=== PATIENT | male | born 1970 | race Caucasian/White ===

== ENCOUNTER → 2017-11-29 | Outpatient (REF) ==
[~2017-11-29] MED LIST: ASPIRIN EC81 MG PO; METOPROL TAR50 MG PO; PRILOSEC40 MG PO; ZYLOPRIM300 MG PO
== END | disposition home or self-care (01) | DRG 642 ==
LOC: LAB 07:52
PROVIDERS: ATTEND Nurse Practitioner Adult Health
DX: E78.4 Other hyperlipidemia (principal); I10 Essential (primary) hypertension

== ENCOUNTER 2020-10-11 08:29 | Inpatient (IN) | payer BC ==
[2020-10-11] VITALS (13 sets, daily range): BP systolic 106–144; BP diastolic 65–78
[~2020-10-11] VITALS: Ht 185.4 cm; Wt 113.6 kg
[~2020-10-11 08:29] MED LIST changes: +METOPROL TAR100 MG PO; -METOPROL TAR50 MG PO
--- NOTE | 2020-10-11 08:33 | NUR ---
PT WHEELED TO ROOM # 15 FOR BEDSIDE TRIAGE.
[2020-10-11 09:00] LABS: GFR 59 ML/MIN (>=60 (CALC)); GFR FOR AFR.AMER. > 60 ML/MIN (>=60 (CALC))
--- NOTE | 2020-10-11 09:30 | NUR ---
RESP EASY, CALL NAGY IN REACH POC DISCUSSED.
[2020-10-11 09:59] LABS: HEMATOCRIT 47.2 % (39.0-50.0); HEMOGLOBIN 15.5 g/dl (14.0-18.0); IMMATURE GRANULOCYTES 0.2 % (0.0-5.0); MEAN CELL VOLUME 88.4 fL CALC (80.0-100.0); MEAN CORPUSCULAR HGB CONC 32.8 g/dL CAL (32.0-36.0); NEUT# 8.11 thou/uL (1.82-7.42); RED BLOOD COUNT 5.34 mill/uL (4.70-6.10); RED CELL DISTRI WIDTH 14.5 % (11.5-15.5)
[2020-10-11 10:16] LABS: D-DIMER 0.52 mg/L (0.19-0.60); INTERNATIONAL NORMALIZED RATIO 1.1 RATIO (0.7-1.3); PROTHROMBIN TIME 11.2 SECONDS (9.0-12.5)
[2020-10-11 10:19] LABS: ALBUMIN 3.8 g/dL (3.2-5.0); ALKALINE PHOSPHATASE 80 u/l (38-126); BILIRUBIN, TOTAL 0.7 mg/dL (0.0-1.4); BUN 16 mg/dL (9-20); BUN/CREATININE RATIO 12 (12-20 (CALC)); CARBON DIOXIDE 28 mmol/l (22-30); CHLORIDE 93 mmol/l (95-108); CREATININE 1.3 mg/dL (0.7-1.3); GFR 59 ML/MIN (>=60 (CALC)); GFR FOR AFR.AMER. > 60 ML/MIN (>=60 (CALC)); SODIUM 131 mmol/l (137-146); TOTAL PROTEIN 7.7 g/dL (6.3-8.2)
[2020-10-11 10:21] LABS: ANION GAP 14 (6-22 (CALC)); POTASSIUM 3.9 mmol/l (3.5-5.1); SGOT/AST 80 u/l (17-59)
[2020-10-11 10:30] LABS: MYOGLOBIN 357 ng/mL (0 - 121)
[2020-10-11 10:35] LABS: C-REACTIVE PROTEIN 24.8 mg/dL (0-0.9)
[2020-10-11] MEDS ORDERED: LOSARTAN POTASS50 MG PO (11:19)
--- NOTE | 2020-10-11 11:29 | NUR ---
IV ABX INFUSING, MAINTENANCE FLUIDS RUNNING. PATIENT DENIES NEEDS AT THIS TIME, CONTINUING TO MONITOR.
--- NOTE | 2020-10-11 11:30 | NUR ---
PATIENT RESTING, NO DISTRESS, O2 SATS 89-92%, RT MADE AWARE.
--- NOTE | 2020-10-11 11:39 | NUR ---
RT AT BEDSIDE, O2 UP TO 7 LITERS ON HIGH FLOW MASK.
--- NOTE | 2020-10-11 11:39 | NUR ---
O2 SATURATION 85% ON 4L NC. PLACED ON HFNC AT 7L.
--- NOTE | 2020-10-11 12:47 | NUR ---
ATTEMPT TO CALL REPORT, IKER AT LUNCH.
--- NOTE | 2020-10-11 12:55 | NUR ---
REPORT CALLED TO ANJELICA DONG
--- NOTE | 2020-10-11 13:10 | NUR ---
Admission Note Report Given to: Transported by: Wheelchair X Stretcher Transported with: X Nurse Transporter X Patent IV X O2 X Piece Worker Location: X ICU [facility]
--- NOTE | 2020-10-11 15:24 | NUR ---
PT ARRIVES TO ICU-6 VIA STRETCHER FROM ER ACCOMPANIED BY ALEXANDRA DEJESUS. PT IS ALERT AND ORIENTED X 3. LUNGS CLEAR, PT ON 7 LPM NC. PT DOES APPEAR SHORT OF BREATH WITH EXERTION, STATES THAT HE HAS FELT POORLY FOR OVER ONE WEEK. PT ABLE TO ANSWER QUESTIONS APPROPRIATELY. NO ACUTE DISTRESS, BUT PT DOES BEAR MONITORING.
--- NOTE | 2020-10-11 17:10 | NUR ---
PT WITH SATS AROUND 90%, NO COMPLAINT OF SHORTNESS OF BREATH OR OTHERWISE.
--- NOTE | 2020-10-11 20:15 | NUR ---
PATIENT IS ALERT AND ORIENTED X4. ON HIGH FLOW NC, WAS AT 10 L/MIN, TITRATED NOW TO 12 L/MIN, SPO2 88%-90%, SPO2 WAS AT 86%, PATIENT DENIES ANY SOB AT THIS TIME, NO RESPIRATORY DISTRESS NOTED. BP WNL, SR ON TELEMETRY, HR 80'S. NURSE ASSESSMENT PERFORMED, SKIN INTACT. NO EDEMA NOTED. IV X1 INTACT, NS INFUSING PROPERLY. USES URINAL, URINE JIM/CLEAR. POC DISCUSSED, EDUCATED ON IMPORTANCE OF LAYING PRONE, PO HYDRATION AND NUTRITION, STEPS FOLLOWING TITRATION OF O2 SUPPORT.AFEBRILE, SELF REPOSITIONS. NO COMPLAINTS OR NEEDS AT THIS TIME. CALL LIGHT WITHIN REACH.
--- NOTE | 2020-10-11 22:00 | NUR ---
PATIENT TOLERATES LOVENOX INJECTION. ICE WATER PROVIDED AND GATORADE. O2 EXTENSION PLACED. PATIENT ABLE TO LAY PRONE AFTER ENCOURAGEMENT. SPO2 DOES DROP TO 80'S WITH EXERTION AND PT BECOMES SOB. WILL CONTINUE TO MONITOR.
[2020-10-12] VITALS (16 sets, daily range): BP systolic 85–116; BP diastolic 43–77
--- NOTE | 2020-10-12 03:06 | NUR ---
PATIENT RESTS ON HIS RIGHT SIDE. NO ACUTE DISTRESS SHOWN.
--- NOTE | 2020-10-12 04:35 | NUR ---
PATIENT O2 SATS DROP TO LOW 80'S WHILE COUGHING. REMINDED HIM OF IMPORTANCE OF LAYING PRONE SINCE HE WAS LAYING ON HIS BACK, PATIENT LAYS ON HIS R-SIDE NOW. AFEBRILE. NO COMPLAINTS OR NEEDS AT THIS TIME. SET UP TECHNICIAN IN ROOM TO DRAW BLOOD.
--- NOTE | 2020-10-12 05:03 | NUR ---
O2 TITARTED TO 14 L/MIN, SPO2 80'S. PATIENT COUGHS.
--- NOTE | 2020-10-12 06:17 | NUR ---
PT ON 14LPM HFNC. ESTEFANY WELL AT THIS TIME. WEB COMMUNICATIONS SPECIALIST TO MONITOR.
[2020-10-12 06:49] LABS: HEMATOCRIT 45.5 % (39.0-50.0); IMMATURE GRANULOCYTES 0.3 % (0.0-5.0); MEAN CELL VOLUME 89.4 fL CALC (80.0-100.0); MEAN CORPUSCULAR HGB 29.5 pG CALC (26.0-32.0); NEUT# 9.18 thou/uL (1.82-7.42); RED BLOOD COUNT 5.09 mill/uL (4.70-6.10); RED CELL DISTRI WIDTH 14.8 % (11.5-15.5)
[2020-10-12 07:10] LABS: ALBUMIN 3.4 g/dL (3.2-5.0); ALKALINE PHOSPHATASE 69 u/l (38-126); ANION GAP 12 (6-22 (CALC)); BILIRUBIN, TOTAL 0.5 mg/dL (0.0-1.4); BUN 15 mg/dL (9-20); BUN/CREATININE RATIO 22 (12-20 (CALC)); C-REACTIVE PROTEIN 8.9 mg/dL (0-0.9); CARBON DIOXIDE 25 mmol/l (22-30); CHLORIDE 101 mmol/l (95-108); CREATININE 0.7 mg/dL (0.7-1.3); GFR > 60 ML/MIN (>=60 (CALC)); GFR FOR AFR.AMER. > 60 ML/MIN (>=60 (CALC)); POTASSIUM 4.3 mmol/l (3.5-5.1); SGOT/AST 86 u/l (17-59); SODIUM 134 mmol/l (137-146)
--- NOTE | 2020-10-12 12:41 | NUR ---
INITIATED HHFNC PER RN CALL STATING MD WISHES TO INITIATE. TITRATED PER PT COMFORT AND SPO2. PT IN BEDSIDE CHAIR,SPEAKING FULL SENTENCES AND ABOUT TO PARTAKE IN LUNCH. NAD. VSS. CIVIL DESIGNER TO MONITOR.
--- NOTE | 2020-10-12 14:06 | NUR ---
TITRATED HHFNC PARAMETERS PER PT SPO2. WHEN APPROPRIATELY TRACKING, POX PROBE READING 92%. FLAT SURFACER JEWEL TO MONITOR. RN AWARE.
--- NOTE | 2020-10-12 20:00 | NUR ---
PATIENT IS AWAKE, ORIENTED X4. ON VAPOTHERM 25 L/MIN AND FIO2 70%. PATIENT ONLY SOB WITH EXERTION. NO DISTRESS HSOWN. NURSE ASSESSMENT PERFORMED. POC DISCUSSED. LAYS PRONE. IV X1 INTACT, IV LFUIDS INFUING PROPERLY. SKIN INTACT, NO EDEMA NOTED. TEMP OF 100.3 DEGREES F, WILL PROVIDE TYLENOL. SELF REPOSITIONS. CALL LIGTH WITHIN REACH.
--- NOTE | 2020-10-12 21:45 | NUR ---
PATIENT SWALLOWS TYLENOL WITHOUT DIFFICULTY. NO ACUTE DISTRES SHOWN, NOW LAYS ON HIS RIGHT SIDE FROM LAYING PRONE. TOLERATES LOVENOX INJECTION. NO COMPLAINTS OR NEEDS AT THIS TIME.
--- NOTE | 2020-10-12 23:21 | NUR ---
PATIENT RESTST ON HIS R-SIDE, NO ACUTE DISTRES SSHOWN, SPO2 91% ON VAPOTHERM 70% FIO2, 25 L/MIN. ELECTRODES REPLACED.
[2020-10-13] VITALS (21 sets, daily range): BP systolic 90–138; BP diastolic 42–85
--- NOTE | 2020-10-13 00:15 | NUR ---
PATIENT LAYS ON HIS RIGHT SIDE. AFEBRILE. RESTS WITH EYES CLSOED. AWAKENS EASILY WHEN SPOKEN TO. NO COMPLAINTS OR NEEDS AT THIS TIME. CALL LIGHT WITHIN REACH. SPO2 89%-90% ON VAPOTHERM ON 30 L/MIN NOW.
--- NOTE | 2020-10-13 04:21 | NUR ---
PATIENT IS AWAKE, REPORTS HE IS UNCOMFORTABLE. LAYS ON HIS R-SIDE. AFEBRILE. SPO2 88%-90% WHEN RESTING, WITH EXERTION DROPS TO LOW 80'S.
[2020-10-13 06:03] LABS: HEMATOCRIT 43.8 % (39.0-50.0); HEMOGLOBIN 14.6 g/dl (14.0-18.0); MEAN CELL VOLUME 88.3 fL CALC (80.0-100.0); MEAN CORPUSCULAR HGB 29.4 pG CALC (26.0-32.0); MEAN CORPUSCULAR HGB CONC 33.3 g/dL CAL (32.0-36.0); RED BLOOD COUNT 4.96 mill/uL (4.70-6.10); RED CELL DISTRI WIDTH 14.5 % (11.5-15.5)
[2020-10-13 06:15] LABS: ALBUMIN 2.8 g/dL (3.2-5.0); ALKALINE PHOSPHATASE 59 u/l (38-126); ANION GAP 11 (6-22 (CALC)); BILIRUBIN, TOTAL 0.5 mg/dL (0.0-1.4); BUN 17 mg/dL (9-20); BUN/CREATININE RATIO 25 (12-20 (CALC)); CARBON DIOXIDE 25 mmol/l (22-30); CHLORIDE 102 mmol/l (95-108); CREATININE 0.7 mg/dL (0.7-1.3); GFR > 60 ML/MIN (>=60 (CALC)); GFR FOR AFR.AMER. > 60 ML/MIN (>=60 (CALC)); POTASSIUM 4.8 mmol/l (3.5-5.1); SGOT/AST 56 u/l (17-59); SODIUM 133 mmol/l (137-146); TOTAL PROTEIN 5.9 g/dL (6.3-8.2)
--- NOTE | 2020-10-13 06:36 | NUR ---
PATIENT SITS IN RECLINER, URINE SAMPLE COLLECTED FOR UA ORDERED.
--- NOTE | 2020-10-13 07:09 | NUR ---
PT RECIEVED ON ALL DOCUMENTED PARAMTERS. NAD. VSS. NO CHANGES AT THIS TIME.
[2020-10-13 07:14] LABS: URINE BILIRUBIN - DIPSTICK NEGATIVE (NEGATIVE); URINE BLOOD DIPSTICK NEGATIVE (NEGATIVE); URINE COLOR YELLOW; URINE GLUCOSE - DIPSTICK NEGATIVE (NEGATIVE); URINE KETONE NEGATIVE (NEGATIVE); URINE LEUK ESTERASE NEGATIVE (NEGATIVE); URINE PROTEIN - DIPSTICK NEGATIVE (NEG-TRACE); URINE SPECIFIC GRAVITY 1.015
[2020-10-13 07:15] LABS: URINE NITRITE - DIPSTICK NEGATIVE (Negative)
--- NOTE | 2020-10-13 10:48 | NUR ---
NO CHANGES AT THIS TIME. NAD. VSS. ENGRAVER HAND SOFT METALS TO MONITOR.
--- NOTE | 2020-10-13 19:45 | NUR ---
sitting in bedside chair. denies resp diff. asked pt if he got covid vaccine. pt said "no." o2 cont 30 liters 65% per vapotherm. #20 rac ns infusing @ 100cchr. po fluids taken fair. voids per urinal. fall & air/contact precautions cont. instructed pt about prone position while in bed. pt said "i usually lay on my side."
--- NOTE | 2020-10-13 21:00 | NUR ---
pt watching tv & is on his rt side. o2 cont. no resp diff.
--- NOTE | 2020-10-13 22:00 | NUR ---
watching tv. no acute resp diff. o2 cont. school bus monitor shows sinus rhythm hr 84.
[2020-10-14] VITALS (10 sets, daily range): BP systolic 105–122; BP diastolic 50–74
--- NOTE | 2020-10-14 00:01 | NUR ---
eyes closed. no distress. batch mixer operator shows sinus rhythm hr 78.
--- NOTE | 2020-10-14 02:00 | NUR ---
resting quietly. resps unlabored. vapotherm conts. no acute distress.
--- NOTE | 2020-10-14 04:00 | NUR ---
entry level civil engineer shows sinus rhythm hr 74. vapotherm conts.
--- NOTE | 2020-10-14 05:07 | NUR ---
lab here. blood drawn.
--- NOTE | 2020-10-14 06:13 | NUR ---
awake. watching tv. o2 cont. has not been in the prone position this shift.
[2020-10-14 06:49] LABS: HEMATOCRIT 42.7 % (39.0-50.0); HEMOGLOBIN 14.1 g/dl (14.0-18.0); IMMATURE GRANULOCYTES 0.5 % (0.0-5.0); MEAN CELL VOLUME 88.2 fL CALC (80.0-100.0); MEAN CORPUSCULAR HGB 29.1 pG CALC (26.0-32.0); NEUT# 12.13 thou/uL (1.82-7.42); RED BLOOD COUNT 4.84 mill/uL (4.70-6.10); RED CELL DISTRI WIDTH 14.8 % (11.5-15.5)
[2020-10-14 07:14] LABS: ALBUMIN 2.7 g/dL (3.2-5.0); ALKALINE PHOSPHATASE 63 u/l (38-126); ANION GAP 12 (6-22 (CALC)); BILIRUBIN, TOTAL 0.6 mg/dL (0.0-1.4); BUN 17 mg/dL (9-20); BUN/CREATININE RATIO 24 (12-20 (CALC)); C-REACTIVE PROTEIN 7.1 mg/dL (0-0.9); CARBON DIOXIDE 24 mmol/l (22-30); CHLORIDE 106 mmol/l (95-108); CREATININE 0.7 mg/dL (0.7-1.3); GFR > 60 ML/MIN (>=60 (CALC)); GFR FOR AFR.AMER. > 60 ML/MIN (>=60 (CALC)); SGOT/AST 48 u/l (17-59); SODIUM 137 mmol/l (137-146); TOTAL PROTEIN 5.7 g/dL (6.3-8.2)
--- NOTE | 2020-10-14 08:00 | NUR ---
PATIENT ASLEEP AND EASILY AROUSABLE.
--- NOTE | 2020-10-14 11:06 | NUR ---
PT ESTEFANY HHFNC WELL AT THIS TIME. NAD. VSS. SUPERVISOR METER REPAIR SHOP TO MONITOR. NO CHANGES IN PARAMETERS AT THIS TIME.
--- NOTE | 2020-10-14 12:15 | NUR ---
PATIENT UP IN CHAIR EATING LUNCH. NO SIGNS OR SYPMTOMS OF DISTRESS
--- NOTE | 2020-10-14 14:42 | NUR ---
nad. vss. no changes at this time. ware server to monitor
--- NOTE | 2020-10-14 16:00 | NUR ---
PATIENT HAS TOLERATED SITTING AT BEDISDE MOST OF TODAY. NO COMPLAINT OR SIGNS AND SYMPTOMS OF DISTRESS.
--- NOTE | 2020-10-14 16:01 | NUR ---
no changes at this time. nad. vss. technical illustrator to monitor.
--- NOTE | 2020-10-14 18:19 | NUR ---
PATIENT LAYING BACK IN BED. EATING DINNER. NO SIGNS OR SYMPTOMS OF COMPLAINTS OR CONCERNS
--- NOTE | 2020-10-14 19:45 | NUR ---
awake. watching tv. lying on rt side. o2 cont 30 l/m 65% per vapotherm. physical education teacher shows sinus rhythm hr 72. #20 rac ns infusing @ 100cchr. po fluids taken fair. voids per urinal. fall & air/contact precautions cont. instructed pt about prone position. pt said "it's probably not going to happen."
--- NOTE | 2020-10-14 21:58 | NUR ---
watching tv. remains on rt side.
[2020-10-15 00:01] VITALS: BP 126/65
--- NOTE | 2020-10-15 00:01 | NUR ---
eyes closed. no distress. color television console monitor shows sinus rhythm hr 74.
[2020-10-15 01:00] VITALS: BP 115/67
--- NOTE | 2020-10-15 02:00 | NUR ---
resting quietly. resps even & unlabored. no apparent resp diff.
--- NOTE | 2020-10-15 04:00 | NUR ---
eyes closed. remains on rt side. secured entrance monitor shows sinus rhythm hr 68.
--- NOTE | 2020-10-15 04:46 | NUR ---
manager monitoring shows sinus david hr 48 then hr returns to 70.
--- NOTE | 2020-10-15 05:20 | NUR ---
lab here. blood drawn.
--- NOTE | 2020-10-15 06:18 | NUR ---
eyes closed. no distress. has not proned this shift.
[2020-10-15 06:30] LABS: ALBUMIN 2.6 g/dL (3.2-5.0); ALKALINE PHOSPHATASE 71 u/l (38-126); ANION GAP 12 (6-22 (CALC)); BILIRUBIN, TOTAL 0.6 mg/dL (0.0-1.4); BUN 15 mg/dL (9-20); BUN/CREATININE RATIO 21 (12-20 (CALC)); CARBON DIOXIDE 26 mmol/l (22-30); CHLORIDE 104 mmol/l (95-108); CREATININE 0.7 mg/dL (0.7-1.3); GFR > 60 ML/MIN (>=60 (CALC)); GFR FOR AFR.AMER. > 60 ML/MIN (>=60 (CALC)); POTASSIUM 4.7 mmol/l (3.5-5.1); SGOT/AST 43 u/l (17-59); SODIUM 137 mmol/l (137-146); TOTAL PROTEIN 5.6 g/dL (6.3-8.2)
[2020-10-15 06:34] LABS: HEMATOCRIT 42.7 % (39.0-50.0); HEMOGLOBIN 14.1 g/dl (14.0-18.0); MEAN CELL VOLUME 88.8 fL CALC (80.0-100.0); MEAN CORPUSCULAR HGB 29.3 pG CALC (26.0-32.0); RED BLOOD COUNT 4.81 mill/uL (4.70-6.10); RED CELL DISTRI WIDTH 14.5 % (11.5-15.5)
[2020-10-15 07:51] VITALS: BP 112/64
--- NOTE | 2020-10-15 08:00 | NUR ---
PATIENT AWAKE AND ALERT. NO SIGNS OR SYMPTOMS OF DISTRESS
--- NOTE | 2020-10-15 12:00 | NUR ---
PATIENT IV HAS INFILTRATED. ATTEMPTS TO START A NEW IV.
--- NOTE | 2020-10-15 16:33 | NUR ---
PATIENT AWAKE AND SITTING UP MOST OF THE DAY. VITALS REMAIN STABLE
[2020-10-15 18:26] VITALS: BP 116/72
--- NOTE | 2020-10-15 18:29 | NUR ---
PATIENT SITTING UP BEDSIDE, NO COMPLAINTS OR CONCERNS
[2020-10-15 19:30] VITALS: BP 143/78
--- NOTE | 2020-10-15 19:30 | NUR ---
awake. laying on back watching tv. denies resp diff. o2 cont 30 l/m 65% vapotherm. lung sounds diminished bilat. asphalt paving supervisor shows sinus rhythm hr 81. po fluids taken fair. voids per urinal. had large liquid brown stool per bsc. fall & air/contact precautions cont. instructed pt about prone position. pt declined.
--- NOTE | 2020-10-15 20:45 | NUR ---
dr goel called this scientific technical writer. update given. no new orders.
--- NOTE | 2020-10-15 22:00 | NUR ---
bp cuff off.
[2020-10-16] VITALS (8 sets, daily range): BP systolic 106–133; BP diastolic 53–90
--- NOTE | 2020-10-16 00:01 | NUR ---
eyes closed. remains on rt side. no distress. soap inspector shows sinus rhythm hr 66.
--- NOTE | 2020-10-16 02:00 | NUR ---
resting quietly. no resp diff. o2 cont. ivf infusing well.
--- NOTE | 2020-10-16 04:00 | NUR ---
eyes closed. no acute distress. nuclear monitoring technician shows sinus rhythm hr 72.
--- NOTE | 2020-10-16 05:58 | NUR ---
eyes closed. no distress. has NOT proned this shift.
[2020-10-16 08:12] LABS: HEMATOCRIT 43.1 % (39.0-50.0); HEMOGLOBIN 14.6 g/dl (14.0-18.0); IMMATURE GRANULOCYTES 3.8 % (0.0-5.0); MEAN CELL VOLUME 88.1 fL CALC (80.0-100.0); MEAN CORPUSCULAR HGB 29.9 pG CALC (26.0-32.0); MEAN CORPUSCULAR HGB CONC 33.9 g/dL CAL (32.0-36.0); NEUT# 13.53 thou/uL (1.82-7.42); RED BLOOD COUNT 4.89 mill/uL (4.70-6.10); RED CELL DISTRI WIDTH 14.4 % (11.5-15.5)
[2020-10-16 08:44] LABS: ALBUMIN 2.7 g/dL (3.2-5.0); ALKALINE PHOSPHATASE 78 u/l (38-126); ANION GAP 9 (6-22 (CALC)); BILIRUBIN, TOTAL 0.6 mg/dL (0.0-1.4); BUN 16 mg/dL (9-20); BUN/CREATININE RATIO 24 (12-20 (CALC)); C-REACTIVE PROTEIN 8.8 mg/dL (0-0.9); CARBON DIOXIDE 25 mmol/l (22-30); CHLORIDE 105 mmol/l (95-108); CREATININE 0.6 mg/dL (0.7-1.3); GFR > 60 ML/MIN (>=60 (CALC)); GFR FOR AFR.AMER. > 60 ML/MIN (>=60 (CALC)); POTASSIUM 4.4 mmol/l (3.5-5.1); SGOT/AST 45 u/l (17-59); SODIUM 134 mmol/l (137-146); TOTAL PROTEIN 5.9 g/dL (6.3-8.2)
--- NOTE | 2020-10-16 09:15 | NUR ---
Patient is resting comfortable with no new complaints. Morning medications provided. Will continue to monitor.
--- NOTE | 2020-10-16 13:00 | NUR ---
Patient is alert and orientated and able to let needs known. Patient is resting with no new concerns. Patient is tolerating the Vapotherm at 30L 65%.
--- NOTE | 2020-10-16 19:33 | NUR ---
REPORT GIVEN BY DICKSON. PATIENT RESTING IN BED WATCHING TV. RESP EVEN AND UNLABORED, VAPOTHERM 30L FIO2 65%. PLAN OF CARE DISCUSSED. IV INFUSING FLUIDS. FALL AND SAFTEY PRECAUTIONS IN PLACE. NSR ON TELE. PATIENT INFORMED TO CALL WITH ANY QUESTIONS OR CONCERNS.
--- NOTE | 2020-10-16 23:01 | NUR ---
patient resting with eyes closed. resp even and unlabored with vapotherm in place. o2 sat 91%. fall and saftey precautions in place.
[2020-10-17] VITALS (12 sets, daily range): BP systolic 104–133; BP diastolic 64–84
--- NOTE | 2020-10-17 02:02 | NUR ---
PATIENT RESTING WITH EYES CLOSED. RESP EVEN AND UNLABORED. NO S/S OF DISTRESS NOTED. FALL AND SAFTEY PRECAUTIONS IN PLACE.
[2020-10-17 04:13] LABS: HEMATOCRIT 43.2 % (39.0-50.0); HEMOGLOBIN 14.3 g/dl (14.0-18.0); IMMATURE GRANULOCYTES 4.1 % (0.0-5.0); MEAN CELL VOLUME 87.8 fL CALC (80.0-100.0); MEAN CORPUSCULAR HGB 29.1 pG CALC (26.0-32.0); MEAN CORPUSCULAR HGB CONC 33.1 g/dL CAL (32.0-36.0); NEUT# 16.25 thou/uL (1.82-7.42); RED BLOOD COUNT 4.92 mill/uL (4.70-6.10); RED CELL DISTRI WIDTH 14.3 % (11.5-15.5)
[2020-10-17 04:41] LABS: ALBUMIN 2.8 g/dL (3.2-5.0); ALKALINE PHOSPHATASE 76 u/l (38-126); ANION GAP 10 (6-22 (CALC)); BILIRUBIN, TOTAL 0.6 mg/dL (0.0-1.4); BUN 16 mg/dL (9-20); BUN/CREATININE RATIO 23 (12-20 (CALC)); C-REACTIVE PROTEIN 8.2 mg/dL (0-0.9); CARBON DIOXIDE 26 mmol/l (22-30); CHLORIDE 102 mmol/l (95-108); CREATININE 0.7 mg/dL (0.7-1.3); GFR > 60 ML/MIN (>=60 (CALC)); GFR FOR AFR.AMER. > 60 ML/MIN (>=60 (CALC)); POTASSIUM 4.9 mmol/l (3.5-5.1); SGOT/AST 40 u/l (17-59); SODIUM 133 mmol/l (137-146); TOTAL PROTEIN 6.1 g/dL (6.3-8.2)
--- NOTE | 2020-10-17 04:43 | NUR ---
PATIENT RESTING WITH EYES CLOSED. RESP EVEN AND UNLABORED. NO S/S OF DISTRESS NOTED. FALL AND SAFTEY PRECAUTIONS IN PLACE.
--- NOTE | 2020-10-17 06:45 | NUR ---
REPORT RECEIVED FROM TOM DEJESUS. CARE ASSUMED.
--- NOTE | 2020-10-17 07:45 | NUR ---
OFFICE RECEPTIONIST SET PATIENT UP FOR AM MEAL. SR ON MONITOR. VSS STABLE.
--- NOTE | 2020-10-17 09:30 | NUR ---
DR DODSON INTO SEE PATIENT ON AM ROUNDS. PLAN OF CARE DISCUSSED.
--- NOTE | 2020-10-17 10:45 | NUR ---
AM ASSESSMENT COMPLETED AT THIS TIME. PT IS ALERT AND ORIENTED X3. IV PATENT X1. VAPOTHERM TITRATED TO 20L 55%. PT TOLERATING WELL. O2 SATS REMAINS >92%. CALL LIGHT IN REACH. WILL CONTINUE TO MONITOR.
--- NOTE | 2020-10-17 11:30 | NUR ---
PT SET UP FOR NOON MEAL. O2 TITRATED TO 20L 45%. PT TOLERATING WELL. O2 SATS REMAIN > 92%. CALL LIGHT IN REACH. WILL CONTINUE TO MONITOR.
--- NOTE | 2020-10-17 13:01 | NUR ---
PT SITTING UP IN BED. RESP ARE EVEN AND UNLABORED. NO DISTRESS NOTED. CALL LIGHT IN REACH. WILL CONTINUE TO MONITOR.
--- NOTE | 2020-10-17 14:01 | NUR ---
PT PLACED ON HI FLOW NASAL CANNULA 8LITERS. PATIENT STATES THAT HE FEELS GREAT O2 SATS 94%
--- NOTE | 2020-10-17 14:40 | NUR ---
DR DODSON AT BEDSIDE TO REEVALUATE PATIENT. ORDERS RECEIVED TO TRANSFER PATIENT TO [facility]
--- NOTE | 2020-10-17 14:44 | NUR ---
PT ON 7L SAT 95% SITTING UP IN BED.
--- NOTE | 2020-10-17 15:03 | NUR ---
PHONED MEDSURG TO GIVE INFO FOR PATIENT TRANSFER.
--- NOTE | 2020-10-17 16:33 | NUR ---
PT WILL GO TO ROOM 281. AR WILL BE THE ASSIGNED NURSE.
--- NOTE | 2020-10-17 18:26 | NUR ---
REPORT RECEIVED FROM EVANSRN
--- NOTE | 2020-10-17 18:26 | NUR ---
REPORT CALLED TO FRANCINE PARKINSON ON MED SURG.
--- NOTE | 2020-10-17 18:40 | NUR ---
PT ARRIVED TO MED/SURG ROOM 281 IN STABLE CONDITION VIA WC ACCOMPANIED BY ANJELICA CIFUENTES;PT ASSISTED TO BEDSIDE WITH A STEADY GAIT.WT AND VS TO BE OBTAINED BY TON GROVER;PT A&O X3, ORIENTED TO ROOM AND CALL LIGHT SYSTEM;PT DENIES ANY CURRENT PAIN OR DISCOMFORTS;#20G TO RAC PATENT;RESPIRATIONS EVEN AND UNLABORED ON O2 @ 8L VIA NC;TELE MONITORING TO BE PLACED ON PT;PT ENCOURAGED TO CALL FOR ASSISTANCE IF NEEDED;FALL PRECAUTIONS IN PLACE WITH CALL LIGHT IN REACH;WILL CONTINUE TO MONITOR
--- NOTE | 2020-10-17 20:00 | NUR ---
PATIENT IS ALERT AND ORIENTED. ABLE TO MAKE NEEDS KNOWN. RESP UNLABORED. ON TELEMETRY. HR REG. DENIES PAIN. VAD S/L AT THIS TIME. NO COMPLAINTS. ASSESSMENT COMPLETED AND CHARTED. BED IN LOW POSITION. CALL LIGHT WITHIN REACH.
[2020-10-18] VITALS: BP 107/73
--- NOTE | 2020-10-18 00:24 | NUR ---
RESTING QUIETLY. NO COMPLAINTS. NO ACUTE DISTRESS NOTED
[2020-10-18 04:00] VITALS: BP 92/54
--- NOTE | 2020-10-18 07:00 | NUR ---
RECIEVED REPORT FROM ANJELICA CARRASQUILLO
[2020-10-18 07:43] VITALS: BP 99/68
--- NOTE | 2020-10-18 07:43 | NUR ---
PT RESTING IN HIGH FOWLERS POSITION UPON ENTERONG ROOM. PT IS A/O X3. ASSESSMENT AND VITALS COMPLETED.BP 99/68, HR 71, O2 96% ON 7L HIGH FLOW NC. RESPIRATIONS ARE EVEN AND UNLABORED WITH NO DISTRSS NOTED. LUNG SOUNDS ARE CLEAR. HEART RHYTHM NORMAL WITH TELE IN PLACE, SR PER ER MONITORING. BOWEL SOUNDS ARE ACTIVE, LBM 10/17/20. PULSES STRONG. #20G RAC INFUSING WITH IVF PER ORDER, SITE REMAINS HEALTHY AND PATENT. SKIN INTACT. PT DENIES OF ANY PAINS OR DISCOMFORTS AT THIS TIME.PT STATES HE IS " OVER THIS AND READY TO GO HOME." PT EDUCATED ON NEED TO DECREASE O2 BEFORE GOING HOME. PT VERBLAIZED UNDERSTANDING. ALL SAFETY PRECAUTIONS ARE IN PLACE WITH CALL LIGHT IN REACH. WILL CONTINUE TO MONITOR.
[2020-10-18 11:11] VITALS: BP 104/55
--- NOTE | 2020-10-18 12:24 | NUR ---
PT RESTING IN SEMI FOWLERS POSITION EATING LUNCH. RESPIRARTIONS ARE EVEN AND UNLABORED ON 7L HIGH FLOW. #20G RAC INFUSING WITH IVF PER ORDER, SITE REMAINS HEALTHY AND PATENT. TELE MONITORING IN PLACE. PT DENIES OF ANY PAINS OR DISCOMFORTS AT THIS TIME. ALL SAFETY PRECAUTIONS ARE IN PLACE WITH CALL LIGHT IN REACH. WILL CONTINUE TO MONITOR.
--- NOTE | 2020-10-18 14:30 | NUR ---
PT RESTING IN SEMI FOWLERS POSITION. RESPIRATIONS REMAINS EVEN AND UNLABORED ON 7L HIGH FLOW, O2 95%. [id number] TO 5.5L NC. O2 SAT REMAINS AT 95% INSTRUCTED PT TO CALL IF FEELING SOB. PT VEBRLAIZED UNDERSTANDING. WILL CONTINUE TO MONITOR.
--- NOTE | 2020-10-18 15:39 | NUR ---
PT RESTING IN SEMI FOWLERS POSITION ON PHONE. RESPIRATIONS ARE EVEN AND UNLABORED ON 5.5L NC. IVF INFUSING PER ORDER, SITE REMAINS HEALTHY AND PATENT. TELE MONITORING IN PLACE. PT CONTIUES TO REFUSE TO PRONE OR SIT UP IN CHAIR. PT DENIES OF ANY PAINS OR DISCOMFORTS ALL SAFETY PRECAUTIONS ARE IN PLACE WITH CALL LIGHT IN REACH. WILL CONTINUE TO MONITOR.
[2020-10-18 16:20] VITALS: BP 126/71
--- NOTE | 2020-10-18 18:20 | NUR ---
OXYGEN DECREASED TO 4L NC. O2 94%. RESPIRATIONS REMAINS EVEN AND UNLABORED WITH NO DISTRESS NOTED. ALL SAFETY PRECAUTIONS ARE IN PLACE. WILL CONTINUE TO MONITOR
--- NOTE | 2020-10-18 20:00 | NUR ---
PATIENT WAS STANDING UP PLUGGING IN CELL PHONE WHEN THIS NURSE ENTERED ROOM FOR ASSESSMENT WITH O2 IN PLACE. PATIENT BACK TO BED. O2 4L IN PL[address]. PULSE OX READ 88 INITIALLY. AFTER HAVING O2 ON FOR ABOUT A MINUTE, IT WAS 91-92%. UNABLE TO TITRATE DOWN AT THIS TIME. NO SOB NOTED. LUNG SOUNDS CTA. HR REG. BS+. DENIES PAIN. VERBALIZED DESIRE TO GO HOME. ASSESSMENT COMPLETED AND CHARTED. BED IN LOW POSITION. CALL LIGHT WITHIN REACH.
[2020-10-18 20:09] VITALS: BP 94/52
[2020-10-19 00:36] VITALS: BP 100/57
--- NOTE | 2020-10-19 01:56 | NUR ---
RESTING QUIETLY. NO COMPLAINTS. O2 4L N/C.
--- NOTE | 2020-10-19 04:51 | NUR ---
RESTING WITH EYES CLOSED. RESPIRATIONS UNLABORED.
[2020-10-19 04:59] VITALS: BP 101/69
[2020-10-19 05:16] LABS: HEMATOCRIT 44.8 % (39.0-50.0); HEMOGLOBIN 14.8 g/dl (14.0-18.0); MEAN CELL VOLUME 88.9 fL CALC (80.0-100.0); MEAN CORPUSCULAR HGB 29.4 pG CALC (26.0-32.0); NEUT# 15.77 thou/uL (1.82-7.42); RED BLOOD COUNT 5.04 mill/uL (4.70-6.10); RED CELL DISTRI WIDTH 14.7 % (11.5-15.5)
[2020-10-19 05:54] LABS: ALKALINE PHOSPHATASE 75 u/l (38-126); BILIRUBIN, TOTAL 0.5 mg/dL (0.0-1.4); BUN 20 mg/dL (9-20); BUN/CREATININE RATIO 29 (12-20 (CALC)); C-REACTIVE PROTEIN 5.4 mg/dL (0-0.9); CARBON DIOXIDE 26 mmol/l (22-30); CHLORIDE 100 mmol/l (95-108); CREATININE 0.7 mg/dL (0.7-1.3); GFR > 60 ML/MIN (>=60 (CALC)); GFR FOR AFR.AMER. > 60 ML/MIN (>=60 (CALC)); SGOT/AST 36 u/l (17-59); SODIUM 131 mmol/l (137-146); TOTAL PROTEIN 6.3 g/dL (6.3-8.2)
[2020-10-19 06:06] LABS: ANION GAP 10 (6-22 (CALC)); POTASSIUM 5.3 mmol/l (3.5-5.1)
[2020-10-19 07:10] VITALS: BP 110/68
--- NOTE | 2020-10-19 07:10 | NUR ---
PATIENT LAYING IN BED AT THIS TIME. 02 ON AT 4 LITERS SPO2 IS 96% . PATIENT DENIES ANY NEEDS OR PAIN. LUNG EVANS ARE CLEAR, TELE MONITOR IN PLACE AND BEING MONITORED BY ED. MARKET RESEARCH CONSULTANT DONE SEE INTERVENTIONS. SIDERAILS ARE UP CALL LIGHT WITHIN REACH.
[2020-10-19 11:05] VITALS: BP 97/60
--- NOTE | 2020-10-19 11:21 | NUR ---
PATIENT RESTING IN BED AT THIS TIME. O2 REMAINS ON AT 2 LITERS. PATIENT DENIES ANY NEEDS OR PAIN. SIDERAILS ARE UP CALL LIGHT IS WITHIN REACH.
[2020-10-19 14:22] VITALS: BP 100/70
[2020-10-19] MEDS ORDERED: ASPIRIN REGULA325 M1 PO (14:55)
[2020-10-19] MEDS ORDERED: OXY1 (14:56)
--- NOTE | 2020-10-19 15:38 | NUR ---
PATIENT D/C AT THIS TIME UNDERSTANDS D/C INSTRUCTIONS. TELE MONITORED REMOVED ED NOTIFIED.
--- NOTE | 2020-10-19 15:56 | NUR ---
Discharge instructions given. Patient verbalizes understanding of same. Discharged in stable condition via Wheelchair WENT HOME WITH FAMILY. PATIENT WENT HOME WITH PORTABLE O2.
== END 2020-10-19 15:59 | disposition home or self-care (01) | DRG 177 ==
LOC: ED 08:29 → ED-I 10:41 → ED 10:55 → ED-I 10:56 → ICU 10:56 → MS2 10-17 18:58
PROVIDERS: Family Medicine; Hospitalist; Nurse Practitioner; ADMIT Internal Medicine; ATTEND Internal Medicine
PROC: XW033E5 Introduction of Remdesivir Anti-infective into Peripheral Vein, Percutaneous Approach, New Technology Group 5 (ICD-10-PCS; principal; 2020-10-11)
DX: U07.1 COVID-19 (principal); J12.82 Pneumonia due to coronavirus disease 2019; J96.01 Acute respiratory failure with hypoxia; I10 Essential (primary) hypertension; M10.9 Gout, unspecified; F17.290 Nicotine dependence, other tobacco product, uncomplicated
CPT/HCPCS: J1650; Q9967